=== PATIENT | female | born 1985 | race Caucasian/White ===

== ENCOUNTER 2016-03-31 07:53 | Emergency (ER) | payer MEDICAID ==
[2016-03-31 08:12] VITALS: BP 140/85
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
== END 2016-03-31 08:50 | disposition home or self-care (01) ==
LOC: ER 07:53
DX: J02.0 Streptococcal pharyngitis (principal); B95.1 Streptococcus, group B, as the cause of diseases classified elsewhere; F17.210 Nicotine dependence, cigarettes, uncomplicated

== ENCOUNTER 2016-08-18 06:44 | Day surgery (SDC) | payer MEDICAID ==
[~2016-08-18 06:44] MED LIST: RINGERS SOLUTION,LACTATED 1,000 ML IV PRN; ceFAZolin SODIUM 1 GM VIAL IV PRN
[2016-08-18] MEDS ORDERED: ceFAZolin SODIUM 1 GM VIAL IV ONE (08:00)
[2016-08-18] MEDS ORDERED: BUPIVACAINE HCL 50 ML VIAL IJ ONE (08:05)
--- NOTE | 2016-08-18 08:47 | OR ---
Operative Report - Dictated Report Narrative: Date: 08/18/2016 Physician: Aryan Grey M.D. Hydraulic Auto Jack Mechanic: Rafael Esqueda PA-C Preoperative diagnosis: Right Carpal tunnel syndrome Postoperative diagnosis: Right Carpal tunnel syndrome Procedure: Open right carpal tunnel release Anesthesia: MAC plus local Complications: None Estimated blood loss: Minimal Tourniquet time: 9 Minutes at 250 mmHg Specimens: None Retained implants: None Drains: None Indications: Melani Is a 30 year-old female who has been followed in my clinic with complaints of carpal tunnel syndrome. Physical exam as well as diagnostic testing showed compression of the median nerve compatible with carpal tunnel syndrome. Conservative measures have failed including but not limited to activity modification, medications, and/or bracing. The risks, benefits, and alternatives were discussed in clinic. The risks being bleeding, infection, nerve, tendon, blood vessel injury, persistent pain, wound complications, weakness, palm pain, need for additional procedures, and persistent symptoms. Consent was obtained in the clinic. Procedure: After marking the correct extremity in the preoperative holding area, a timeout was performed in the operating room. IV antibiotics consisting of 2 g of Ancef were administered prior to the procedure. A well-padded tourniquet was applied to the operative upper arm. The arm was exsanguinated and the tourniquet was inflated to 250 mmHg. 0.5% Marcaine without epinephrine was infused into the projected incision site. Using Loupe magnification, a longitudinal incision was made in line with the longitudinal hypothenar crease, or approximately in line with the ring finger, from just distal to the wrist flexion crease and extending approximately 2.5 cm distally. Blunt dissection and hemostasis with bipolar cautery was carried out throught the subcutaneous tissue and palmar fascia down to the level of the transverse carpal ligament. Ragnel retractors were used to retract the surrounding soft tissue and provide good visualization of the transverse carpal ligament. The transverse carpal ligament was then sharply incised longitudinally with a 15-blade scalpel. A [place] elevator was then slid underneath the transverse carpal ligament distally, protecting the median nerve, and the remaining distal portion of the transverse carpal ligament was sharply divided. This was then repeated proximally to divide the remaining proximal portion. Tenotomy scissors were used to divide any remaining transverse carpal ligament and palmar fascia distally being careful to avoid the superficial palmar arch. The distal forearm fascia was released ensuring that the median nerve was completely decompressed utilizing tenotomy scissors. The median nerve was then carefully inspected. Once it was felt that all the tissues overlying the median nerve were completely released, the wounds were thoroughly irrigated with saline. Tourniquet was deflated and hemostasis was obtained with pressure as well as bipolar cautery. Once there was no excessive bleeding, the wounds were closed with interrupted 4-0 nylon. Xeroform, 4 x 4's, soft roll, and a well-padded dorsal short arm wrist splint was applied. The patient was awoken and transferred to the post-anesthesia care unit in stable condition. All sponge, needle, blade, and instrument counts were correct prior to closing the wounds. Additional 0.5% Marcaine without epinephrine was infused into the skin edges for pain control.
[2016-08-18 09:44] VITALS: BP 115/67
== END 2016-08-18 06:45 | disposition home or self-care (01) ==
LOC: AMB 06:44
PROVIDERS: ATTEND Orthopaedic Surgery
PROC: 01N50ZZ Release Median Nerve, Open Approach (ICD-10-PCS; principal; 2016-08-18 08:05)
DX: G56.01 Carpal tunnel syndrome, right upper limb (principal); K21.9 Gastro-esophageal reflux disease without esophagitis; F17.210 Nicotine dependence, cigarettes, uncomplicated; Z68.42 Body mass index [BMI] 45.0-49.9, adult

== ENCOUNTER 2016-09-20 11:52 | Day surgery (SDC) | payer MEDICAID ==
[~2016-09-20 11:52] MED LIST changes: -ceFAZolin SODIUM 1 GM VIAL IV PRN; +ceFAZolin SODIUM 1 GM/10 ML ML IV PRN
--- OUTSIDE RECORDS SUMMARY | 2016-09-20 11:56 | XMS REPORT | Clinical Summary ---
:1985 Author Organization [facility] [place] [address] Care Team Providers Name Role Phone Unavailable Primary Care Provider Unavailable Source Comments This disclosure is being made pursuant to the [employer] program and maynot contain all information available regarding this patient.[facility] Allergies Not on File Current Medications Be aware that medications may not be up to date as of this document. Alwaysverify current medications with the patient. Not on file Active Problems Not on file Social History Tobacco Use Types Packs/Day Years Used Date Never Assessed Sex Assigned at Date Recorded Not on file Last Filed Vital Signs Not on file Plan of Treatment Health Maintenance Due Date Last Done Comments Retired-Pertussis Vaccine Adult 2005 Retired-Tetanus Vaccine Adult 2005 Pap Smear 08/21/2007 Retired-INFLUENZA VACCINE 10/28/2014 Results Not on filefrom Last 3 Months
[2016-09-20] MEDS ORDERED: RINGERS SOLUTION,LACTATED 1,000 ML IV ONE ×2 (12:17→14:00)
[2016-09-20] MEDS ORDERED: ceFAZolin SODIUM 1 GM VIAL IV ONE (13:25)
[2016-09-20] MEDS ORDERED: BUPIVACAINE HCL 50 ML VIAL IJ ONE (13:45)
--- NOTE | 2016-09-20 14:20 | OR ---
Operative Report - Dictated Report Narrative: Date: 09/20/2016 Physician: Aryan Grey M.D. Social Media Sr Strategy Manager: Farzad Ferrer PA-C Preoperative diagnosis: Left Carpal tunnel syndrome Postoperative diagnosis: Left Carpal tunnel syndrome Procedure: Open left carpal tunnel release Anesthesia: MAC plus local Complications: None Estimated blood loss: Minimal Tourniquet time: 12 Minutes at 250 mmHg Specimens: None Retained implants: None Drains: None Indications: Melani Is a 31 year-old female who has been followed in my clinic with complaints of carpal tunnel syndrome. Physical exam as well as diagnostic testing showed compression of the median nerve compatible with carpal tunnel syndrome. Conservative measures have failed including but not limited to activity modification, medications, and/or bracing. The risks, benefits, and alternatives were discussed in clinic. The risks being bleeding, infection, nerve, tendon, blood vessel injury, persistent pain, wound complications, weakness, palm pain, need for additional procedures, and persistent symptoms. Consent was obtained in the clinic. Procedure: After marking the correct extremity in the preoperative holding area, a timeout was performed in the operating room. IV antibiotics consisting of 2 g of Ancef were administered prior to the procedure. A well-padded tourniquet was applied to the operative upper arm. The arm was exsanguinated and the tourniquet was inflated to 250 mmHg. 0.5% Marcaine without epinephrine was infused into the projected incision site. Using Loupe magnification, a longitudinal incision was made in line with the longitudinal hypothenar crease, or approximately in line with the ring finger, from just distal to the wrist flexion crease and extending approximately 2.5 cm distally. Blunt dissection and hemostasis with bipolar cautery was carried out throught the subcutaneous tissue and palmar fascia down to the level of the transverse carpal ligament. Ragnel retractors were used to retract the surrounding soft tissue and provide good visualization of the transverse carpal ligament. The transverse carpal ligament was then sharply incised longitudinally with a 15-blade scalpel. A [place] elevator was then slid underneath the transverse carpal ligament distally, protecting the median nerve, and the remaining distal portion of the transverse carpal ligament was sharply divided. This was then repeated proximally to divide the remaining proximal portion. Tenotomy scissors were used to divide any remaining transverse carpal ligament and palmar fascia distally being careful to avoid the superficial palmar arch. The distal forearm fascia was released ensuring that the median nerve was completely decompressed utilizing tenotomy scissors. The median nerve was then carefully inspected. Once it was felt that all the tissues overlying the median nerve were completely released, the wounds were thoroughly irrigated with saline. Tourniquet was deflated and hemostasis was obtained with pressure as well as bipolar cautery. Once bleeding had resolved and there was no excessive bleeding, the wounds were closed with interrupted 4-0 nylon. Xeroform, 4 x 4's, soft roll, and a well- padded dorsal short arm wrist splint was applied. The patient was awoken and transferred to the post-anesthesia care unit in stable condition. All sponge, needle, blade, and instrument counts were correct prior to closing the wounds. Additional 0.5% Marcaine without epinephrine was infused into the skin edges for pain control.
[2016-09-20 15:08] VITALS: BP 114/67
== END 2016-09-20 11:53 | disposition home or self-care (01) ==
LOC: AMB 11:52
PROVIDERS: ATTEND Orthopaedic Surgery
PROC: 01N50ZZ Release Median Nerve, Open Approach (ICD-10-PCS; principal; 2016-09-20 12:30)
DX: G56.02 Carpal tunnel syndrome, left upper limb (principal); K21.9 Gastro-esophageal reflux disease without esophagitis; F17.210 Nicotine dependence, cigarettes, uncomplicated; Z68.42 Body mass index [BMI] 45.0-49.9, adult

== ENCOUNTER 2016-09-28 14:49 | Emergency (ER) | payer MEDICAID ==
[2016-09-28] MEDS ORDERED: ONDANSETRON 4 MG TAB.RAPDIS PO ONE (15:21)
--- OUTSIDE RECORDS SUMMARY | 2016-09-28 15:21 | XMS REPORT | Clinical Summary ---
:1985 Author Organization [facility] Address [place] [address] Care Team Providers Name Role Phone Unavailable Primary Care Provider Unavailable Source Comments This disclosure is being made pursuant to the [employer] program and maynot contain all information available regarding this patient.[facility] Allergies Not on File Current Medications Be [...]
[2016-09-28] MEDS ORDERED: ONDANSETRON 4 MG TAB.RAPDIS ONE (15:23)
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
[2016-09-28 15:33] VITALS: BP 137/84
[2016-09-28 15:35] LABS: Hematocrit 42.1 % (37.0-47.0); Hemoglobin 14.2 gm/dL (12.5-16.0); Mean Cell Volume 85.6 fl (78-100); Mean Corpuscular Hemoglobin 28.9 pg (27-31); Mean Corpuscular Hgb Conc 33.7 g/dl (32-36); Mean Platelet Volume 10.3 fl (6.0-9.5); Neutrophil # 6.3 K/mm3 (1.3-6.0); Neutrophil % 64.1 % (42-75.0); Platelet Count 274 K/mm3 (150-450); Red Blood Count 4.92 M/mm3 (4.2-5.4); Red Cell Distribution Width 13.4 % (11.5-14.0); White Blood Count 9.8 K/mm3 (4.0-10.5)
[2016-09-28 15:46] LABS: Albumin * 3.4 gm/dl (3.4-5.0); Anion Gap 12.3 mmol/L (6.8-13.8); BUN/Creatinine Ratio 13.2 (9.0-21.6); Bilirubin, Total 0.3 mg/dL (0.0-1.1); Calcium * 8.8 mg/dL (7.9-10.9); Carbon Dioxide 25.6 mmol/L (24-32.6); Potassium 3.9 mmol/L (3.4-4.6)
== END 2016-09-28 15:57 | disposition home or self-care (01) ==
LOC: ER 14:49
DX: T88.7XXA Unspecified adverse effect of drug or medicament, initial encounter (principal); Z98.890 Other specified postprocedural states

== ENCOUNTER 2016-11-11 17:57 | Emergency (ER) | payer MEDICAID ==
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
[2016-11-11 18:58] LABS: TSH * 1.628 uIU/mL (0.358-3.74)
[2016-11-11] MEDS ORDERED: NORMAL SALINE 1,000 ML IV ONE (19:03)
[2016-11-11] MEDS ORDERED: MECLIZINE HCL 25 MG TABLET PO ONE (19:03)
[2016-11-11] MEDS ORDERED: MECLIZINE HCL 25 MG TABLET ONE (19:04)
[2016-11-11 20:40] VITALS: BP 126/85
== END 2016-11-11 20:14 | disposition home or self-care (01) ==
LOC: ER 17:57
DX: H81.10 Benign paroxysmal vertigo, unspecified ear (principal); F17.200 Nicotine dependence, unspecified, uncomplicated; R53.83 Other fatigue